=== PATIENT | male | born 1950 | race Caucasian/White ===

== ENCOUNTER 2019-03-21 15:58 | Inpatient (IN) | payer MEDICARE, OTHER ==
[~2019-03-21] VITALS: Ht 180.3 cm; Wt 66.2 kg
--- NOTE | 2019-03-21 16:15 | NUR ---
Patient BIB pvt ambulance from [facility] for med cl to GPS admission. Patient put on a 5150 for GD. Patient reportedly was in a Lyft ride to a [place] residence that he used to live in and has not lived at this residence for about 3 years. Patient A/Ox2 to self and setting. Respiratory even and unlabored, no cough no sob. No acute cardiovascular distress noted, allpulses palpable. Patient ambulating steady. Patient in bed at lowest position, srupx2, fall and safety precautions implemented per protocol.
[2019-03-21] MEDS ORDERED: LISI-603 PO (16:33)
[2019-03-21] MEDS ORDERED: LEVE500T9 PO (16:33)
[2019-03-21] MEDS ORDERED: QUET25TA PO (16:33)
[2019-03-21] MEDS ORDERED: FAMO-132 PO (16:33)
[2019-03-21] MEDS ORDERED: CYAN1TAB17 PO (16:33)
[2019-03-21] MEDS ORDERED: DILT180C90 PO (16:33)
[2019-03-21] MEDS ORDERED: THIA100T13 PO (16:33)
[2019-03-21] MEDS ORDERED: NICO-671 TP (16:33)
[2019-03-21 16:36] LABS: BASOPHILS % (AUTO) 0.6 % (0.0-2.0); EOSINOPHILS # (AUTO) 0.1 K/uL (0.0-0.7); EOSINOPHILS % (AUTO) 1.8 % (0.0-7.0); HEMATOCRIT 35.8 % (36.7-47.1); HEMOGLOBIN 11.9 g/dL (12.5-16.3); LYMPHOCYTES # (AUTO) 1.7 K/uL (20.0-40.0); LYMPHOCYTES % (AUTO) 22.5 % (20.5-51.5); MEAN CORPUSCULAR HEMOGLOBIN 30.9 uug (23.8-33.4); MEAN CORPUSCULAR HGB CONC 33 g/dL (32.5-36.3); MEAN CORPUSCULAR VOLUME 93.1 fL (73.0-96.2); NEUTROPHILS # (AUTO) 4.6 K/uL (1.8-8.9); NEUTROPHILS % (AUTO) 62.1 % (38.5-71.5); PLATELET COUNT (AUTO) 196 K/uL (152-348); RED BLOOD CELL COUNT(AUTO) 3.85 MIL/uL (4.06-5.63); WHITE BLOOD COUNT (AUTO) 7.4 K/uL (3.6-10.2)
[2019-03-21 16:42] LABS: CARBON DIOXIDE 30 mmol/L (21-32); CHLORIDE 105 mmol/L (98-107); CREATININE 0.6 mg/dL (0.6-1.3); GLUCOSE 87 mg/dL (74-106); UREA NITROGEN, BLOOD 15 mg/dL (7-18)
[2019-03-21 16:45] LABS: *BILIRUBIN,URIN NEGATIVE (NEGATIVE); *CLARITY,URINE CLEAR (CLEAR); *COLOR,URINE YELLOW (YELLOW); *KETONES,URINE NEGATIVE (NEGATIVE); *UROBILINOGEN,URINE 0.2 E.U./dl (NORMAL); LEUKOCYTE ESTERASE ,URINE TRACE (NEGATIVE); NITRITE, URINE NEGATIVE (NEGATIVE); PH,URINE 6.5 (5.0-8.0); UGLUCOSE NEGATIVE (NEGATIVE)
[2019-03-21 16:48] LABS: ACETAMINOPHEN < 2.0 ug/mL (10-30); ALANINE AMINOTRANSFERASE 23 U/L (16-63); ALKALINE PHOSPHATASE 101 U/L (50-136); ASPARTATE AMINOTRANSFERASE 13 U/L (15-37); BILIRUBIN,DIRECT 0.1 mg/dL (0.0-0.2); BILIRUBIN,TOTAL 0.5 mg/dL (0.2-1.0); TOTAL PROTEIN, SERUM 7.2 g/dL (6.4-8.2)
[2019-03-21 16:50] LABS: ETHANOL < 3 MG/DL (0-0)
[2019-03-21 16:51] LABS: *BLOOD, URINE TRACE (NEGATIVE)
[2019-03-21 16:55] LABS: *AMPHETAMINE, URINE NEGATIVE (NEGATIVE); *BARBITURATE, URINE NEGATIVE (NEGATIVE); *CANNABINOID, URINE NEGATIVE (NEGATIVE); *COCCAINE, URINE NEGATIVE (NEGATIVE); *OPIATE, URINE NEGATIVE (NEGATIVE); *PHENCYCLIDINE SCREEN,URINE NEGATIVE (NEGATIVE)
--- NOTE | 2019-03-21 17:21 | NUR ---
Report given to VIVIENNE Giraldo
--- NOTE | 2019-03-21 17:24 | NUR ---
Patient transported to MHU in stable condition.
--- NOTE | 2019-03-21 17:30 | NUR ---
GPS: Nursing Notes: Admitting Notes: Patient admitted to MHU on 5150 GD due to confusion, disorientation, not having any penitentiary and any means to take care of himself. on face to face assessment, A/Ox1, forgetful, confused, disoriented, disorganized, gets easily irritable and anxious when questioned by staff, unable to formulate a viable plan for self care, admitting package giving to the patient and oriented to the unit, V/S: 150/65, 83, 18, 100%, 0/10, 98.1, ambulatory, continue to monitor for safety, continue with treatment plan.
[2019-03-21 17:35] VITALS: BP 150/65
[2019-03-21] MEDS ORDERED: BLOOD SUGAR DIAGNOSTIC 1 EACH STRIP VI ONE (17:45)
[2019-03-21] MEDS ORDERED: ACETAMINOPHEN 325 MG TABLET PO PRN (17:45)
[2019-03-21] MEDS ORDERED: MAG HYDROX/AL HYDROX/SIMETH 30 ML LIQUID UDC PO PRN (17:45)
[2019-03-21] MEDS ORDERED: MAGNESIUM HYDROXIDE 30 ML LIQUID UDC PO PRN (17:45)
[2019-03-21] MEDS ORDERED: LORAZEPAM 1 MG TABLET PO PRN (17:45)
[2019-03-21] MEDS ORDERED: ZOLPIDEM 5 MG TABLET PO PRN (17:45)
[2019-03-21 20:17] VITALS: BP 167/67
--- NOTE | 2019-03-22 05:41 | NUR ---
Patient slept 5.30 hours. Went to bed late. In bed asleep at this time. No issues or distress noted. Continuing to reorient to environment as needed.
[2019-03-22] MEDS: NICOTINE 21 MG/24HR PATCH TD SCH ×2 (08:23→08:25)
[2019-03-22 08:58] LABS: ALANINE AMINOTRANSFERASE 23 U/L (16-63); ALKALINE PHOSPHATASE 96 U/L (50-136); ASPARTATE AMINOTRANSFERASE 13 U/L (15-37); BILIRUBIN,TOTAL 0.8 mg/dL (0.2-1.0); CARBON DIOXIDE 31 mmol/L (21-32); CHLORIDE 102 mmol/L (98-107); CREATININE 0.6 mg/dL (0.6-1.3); GLUCOSE 127 mg/dL (74-106); POTASSIUM 4.1 mmol/L (3.5-5.1); TOTAL PROTEIN, SERUM 7.8 g/dL (6.4-8.2); UREA NITROGEN, BLOOD 15 mg/dL (7-18)
--- NOTE | 2019-03-22 10:30 | NUR ---
called and spoke with Dr. Marie regarding Neuroconsult order, Doctor acknowledge will continue follow up
[2019-03-22] MEDS: LISINOPRIL 20 MG TABLET PO SCH ×2 (11:30→20:21)
[2019-03-22] MEDS ORDERED: CYANOCOBALAMIN 100 MCG TABLET PO SCH (11:30)
[2019-03-22] MEDS ORDERED: FOLIC ACID/VITAMIN B COMP W-C TABLET PO SCH (11:30)
[2019-03-22] MEDS ORDERED: THIAMINE HCL 100 MG TABLET PO SCH (11:30)
[2019-03-22] MEDS: FAMOTIDINE 20 MG TABLET PO SCH ×2 (11:34→16:08)
[2019-03-22] MEDS: LEVETIRACETAM 500 MG TABLET PO SCH ×2 (11:34→20:20)
[2019-03-22] MEDS: DILTIAZEM HCL 90 MG TABLET PO SCH ×3 (11:37→23:58)
[2019-03-22] MEDS ORDERED: DILTIAZEM HCL CD 180 MG CAP.SR.24H PO SCH (12:00)
[2019-03-22] MEDS: CEphaleXIN 250 MG CAPSULE PO SCH ×2 (14:37→21:00)
[2019-03-22 15:40] VITALS: BP 113/53
[2019-03-22] MEDS: QUETIAPINE FUMARATE 25 MG TABLET PO SCH (20:20)
[2019-03-22 20:24] VITALS: BP 149/68
[2019-03-23] MEDS: CEphaleXIN 250 MG CAPSULE PO SCH ×3 (05:54→23:37)
[2019-03-23] MEDS: DILTIAZEM HCL 90 MG TABLET PO SCH ×3 (05:54→17:03)
[2019-03-23 07:51] VITALS: BP 144/66
[2019-03-23] MEDS: FAMOTIDINE 20 MG TABLET PO SCH ×2 (08:51→17:03)
[2019-03-23] MEDS: LEVETIRACETAM 500 MG TABLET PO SCH ×2 (08:51→20:22)
[2019-03-23] MEDS: VITAMIN B COMPLEX 1 TABLET PO SCH (08:51)
[2019-03-23] MEDS: LISINOPRIL 20 MG TABLET PO SCH ×2 (08:51→20:22)
[2019-03-23] MEDS: NICOTINE 21 MG/24HR PATCH TD SCH (08:59)
[2019-03-23] MEDS ORDERED: FOLIC ACID/VITAMIN B COMP W-C TABLET PO SCH (09:00)
--- NOTE | 2019-03-23 13:46 | NUR ---
Social Work Note/Initial Discharge Note: Patient currently does not have an existing address. Patient appears to be homeless. antichecking iron worker will work with the patient and the MD regarding appropriate discharge planning. antichecking iron worker will form a safe and proper discharge.
--- NOTE | 2019-03-23 13:47 | NUR ---
Social Work Note/Family Contact: hold worker contacted patients sister Marycruz ([phone]) who states that she lives in [place] and does not have any contact with her brother. hold worker was able to gather some collateral. hold worker also contacted patients other sister Evelyn who live sin [place] ([phone]) and left a voicemail.
--- NOTE | 2019-03-23 13:48 | NUR ---
Social Work Note: rehabilitation caseworker contacted [facility] in [place] to speak to housing case manager Israel ([phone]) who was the ER housing case manager. Then this engineering writer was transfered to Vickey another housing case manager who stated that housing case manager for patient is Stellaeduardo Pete ([phone]) was not available. Per Vickey, he stated that patient was homeless and was unsure why patient was discharged to [place]. Per Vickey, he stated that there hospital works with [facility] and that they are contracted.
--- NOTE | 2019-03-23 14:50 | NUR ---
Social Work Note/Coordination of Care: trail construction worker contacted Nathalie delmer from [facility] ([phone]) and sent patients psychiatric H & P notes and progress notes.
--- NOTE | 2019-03-23 14:56 | NUR ---
Social Work Note/Coordination of Care: tire worker contacted Julio C dowell from [facility] ([phone]) and sent patients psychiatric H & P notes and progress notes.
--- NOTE | 2019-03-23 15:04 | NUR ---
Social Work Note/Coordination of Care: tank worker contacted Vickey dowell from [facility] ([phone]) and sent patients psychiatric H & P notes and progress notes.
[2019-03-23 16:52] VITALS: BP 124/52
[2019-03-23 20:05] VITALS: BP 139/52
[2019-03-23] MEDS: QUETIAPINE FUMARATE 25 MG TABLET PO SCH (20:21)
[2019-03-24] MEDS: DILTIAZEM HCL 90 MG TABLET PO SCH ×4 (06:00→17:03)
[2019-03-24] MEDS: CEphaleXIN 250 MG CAPSULE PO SCH ×3 (06:34→21:22)
[2019-03-24 07:30] VITALS: BP 103/50
[2019-03-24] MEDS: NICOTINE 21 MG/24HR PATCH TD SCH (08:14)
--- NOTE | 2019-03-24 08:28 | NUR ---
Social Work Note/Coordination of Care: die set up worker contacted Nathalie delmer from [facility] ([phone]) and sent patients psychiatric H & P notes and progress notes. Nathalie declined patient due to not enough SNF days.
--- NOTE | 2019-03-24 08:28 | NUR ---
Social Work Note/Coordination of Care: corrections caseworker contacted Vickey from [facility] ([phone]) and sent patients psychiatric H & P notes and progress notes.
[2019-03-24] MEDS: LISINOPRIL 20 MG TABLET PO SCH ×2 (08:36→20:17)
[2019-03-24] MEDS: FAMOTIDINE 20 MG TABLET PO SCH ×2 (08:36→17:02)
[2019-03-24] MEDS: LEVETIRACETAM 500 MG TABLET PO SCH ×2 (08:36→20:17)
[2019-03-24] MEDS: VITAMIN B COMPLEX 1 TABLET PO SCH (08:38)
--- NOTE | 2019-03-24 08:49 | NUR ---
Social Work Note: vegetable farmworker spoke with Gregoria Pete director of casework services from [facility] ([phone]). vegetable farmworker requested director of casework services to share patients address. Per Gregoria, she stated that they do not restrain patients and allow them to go to the destination they prefer. She stated that she provided patient with resources upon discharge such as mental health clinics. This technical publications writer asked if she provided patient with home health services and Gregoria stated that they are unable to provide home health services. This technical publications writer asked if patient had keys upon arrival and Gregoria stated that no patient had no keys. Gregoria will contact this public health social worker to verify patient address in [place].
--- NOTE | 2019-03-24 10:01 | NUR ---
Social Work Note/Coordination of Care: adz worker contacted Bria jamie ([phone]) and shared to fax to [facility] ([phone]) patients H & P psychiatric notes and progress notes. adz worker faxed and will follow up.
--- NOTE | 2019-03-24 14:25 | NUR ---
Social Work Note/Coordination of Care: automotive tire worker contacted Vickey dowell from [facility] ([phone]) and he had declined patient due to no SNF days. automotive tire worker contacted Julio C dowell from [facility] ([phone]) and she had declined due to patient having no SNF days. automotive tire worker contacted Vickey from [facility] ([phone]) and declined due to patient behavioral being problematic and stated that [facility] declined due to no SNF days.
--- NOTE | 2019-03-24 14:27 | NUR ---
Social Work Note/Coordination of Care: print room worker faxed Rita from [facility] ([phone]) and faxed H & P psychiatric notes and progress notes. Per Rita and Lian, pt is accepted. Per Rita, they will provide transportation 03/28/2019 at 11PM.
--- NOTE | 2019-03-24 14:48 | NUR ---
Social Work Note/Substance Abuse Intervention: Patient was provided with a brief substance abuse intervention and referred to [facility] , [facility] , and [facility] .
--- NOTE | 2019-03-24 14:58 | NUR ---
Social Work Note/Family Contact: salvage mend worker contacted patients sister Marycruz ([phone]) and stated that patient will be discharged to [facility] and gave information. salvage mend worker informed that patient will be discharged 03/28/19 at 11AM. Per Marycruz, she was agreeable with this discharge plan.
--- NOTE | 2019-03-24 15:08 | NUR ---
Social Work Note/Individual Therapy Note: viscosity worker met with patient and provided brief counseling. Patient is easily irritable and easily angered. Patient presents with flat affect. viscosity worker discussed positive/negatives about substance abuse. Patient stated that "drinking" is for idiots.
[2019-03-24 16:38] VITALS: BP 138/64
--- NOTE | 2019-03-24 17:36 | NUR ---
Called dr. Lou to follow up with neuro consult. Left a message.
[2019-03-24 20:12] VITALS: BP 157/70
[2019-03-24] MEDS: QUETIAPINE FUMARATE 25 MG TABLET PO SCH (20:17)
[2019-03-25] MEDS: CEphaleXIN 250 MG CAPSULE PO SCH ×3 (06:16→20:26)
[2019-03-25] MEDS: DILTIAZEM HCL 90 MG TABLET PO SCH ×4 (06:16→17:01)
[2019-03-25 07:30] VITALS: BP 134/65
[2019-03-25] MEDS: FAMOTIDINE 20 MG TABLET PO SCH ×2 (08:29→17:00)
[2019-03-25] MEDS: NICOTINE 21 MG/24HR PATCH TD SCH (08:29)
[2019-03-25] MEDS: LEVETIRACETAM 500 MG TABLET PO SCH ×2 (08:29→20:25)
[2019-03-25] MEDS: LISINOPRIL 20 MG TABLET PO SCH ×2 (08:29→20:26)
[2019-03-25] MEDS: VITAMIN B COMPLEX 1 TABLET PO SCH (08:31)
[2019-03-25 16:00] VITALS: BP 120/47
[2019-03-25] MEDS: QUETIAPINE FUMARATE 25 MG TABLET PO SCH (20:25)
[2019-03-25 20:43] VITALS: BP 153/66
--- NOTE | 2019-03-25 22:00 | NUR ---
received to care, sitting in tv room, by self, isolative and suspicious, but pleasant when approached. denies si, or any other symptoms. compliant with medications, but was initially hesitant, stating that he didn't need any medications, denying the need to be in the hospital. as of 2199, he appears to be asleep. no distress noted. will continue to monitor closely.
[2019-03-26] MEDS: DILTIAZEM HCL 90 MG TABLET PO SCH ×4 (05:49→17:05)
[2019-03-26] MEDS: CEphaleXIN 250 MG CAPSULE PO SCH (05:49)
--- NOTE | 2019-03-26 06:00 | NUR ---
slept 8 hours, total. continues to sleep. no distress noted.
[2019-03-26 07:30] VITALS: BP 117/54
[2019-03-26] MEDS: VITAMIN B COMPLEX 1 TABLET PO SCH (08:59)
[2019-03-26] MEDS: LISINOPRIL 20 MG TABLET PO SCH ×2 (08:59→20:21)
[2019-03-26] MEDS: LEVETIRACETAM 500 MG TABLET PO SCH ×2 (08:59→20:20)
[2019-03-26] MEDS: NICOTINE 21 MG/24HR PATCH TD SCH (08:59)
[2019-03-26] MEDS: FAMOTIDINE 20 MG TABLET PO SCH ×2 (09:00→17:05)
[2019-03-26 16:00] VITALS: BP 146/67
[2019-03-26 20:00] VITALS: BP 145/54
[2019-03-26] MEDS: QUETIAPINE FUMARATE 25 MG TABLET PO SCH (20:20)
[2019-03-26] MEDS: ATORVASTATIN 10 MG TABLET PO SCH (20:21)
--- NOTE | 2019-03-26 22:00 | NUR ---
received to care, sitting by self in activity room, watching tv, pleasant upon approach. was initially reluctant to take his medications, believing that he was already given them. he eventually took them, with much encouragement. he did become verbally abusive, but calmed down quickly. as of 2199, he appears to be asleep. no distress noted. will continue to monitor closely.
--- NOTE | 2019-03-27 06:00 | NUR ---
slept 8.25 hours, total. continues to sleep. no distress noted.
[2019-03-27] MEDS: DILTIAZEM HCL 90 MG TABLET PO SCH ×4 (06:06→17:47)
[2019-03-27 07:30] VITALS: BP 146/68
[2019-03-27] MEDS: FAMOTIDINE 20 MG TABLET PO SCH ×2 (09:01→16:43)
[2019-03-27] MEDS: LEVETIRACETAM 500 MG TABLET PO SCH ×2 (09:01→20:01)
[2019-03-27] MEDS: VITAMIN B COMPLEX 1 TABLET PO SCH (09:01)
[2019-03-27] MEDS: ASPIRIN 81 MG TAB.CHEW PO SCH (09:01)
[2019-03-27] MEDS: NICOTINE 21 MG/24HR PATCH TD SCH (09:02)
[2019-03-27] MEDS: LISINOPRIL 20 MG TABLET PO SCH ×2 (09:02→20:01)
[2019-03-27] MEDS: QUETIAPINE FUMARATE 25 MG TABLET PO SCH ×3 (09:08→20:02)
--- NOTE | 2019-03-27 15:22 | NUR ---
Social Work Note/PC Hearing Notification: electrical linesworker contacted patients sister Marycruz, ([phone]) and notified patients probable cause of hearing today.
[2019-03-27 16:28] VITALS: BP 146/65
[2019-03-27] MEDS: ATORVASTATIN 10 MG TABLET PO SCH (20:01)
[2019-03-27 20:10] VITALS: BP 151/60
[2019-03-28] MEDS: DILTIAZEM HCL 90 MG TABLET PO SCH ×2 (05:58)
[2019-03-28 07:57] VITALS: BP 151/69
--- NOTE | 2019-03-28 08:02 | NUR ---
Social Work Note/Discharge: Patient will be discharged to detention facility, [facility] [place] [address]; ([phone]) via Ambulance transportation at 11AM provided by [facility] [place]. Tender Labor spoke with Rita Lead Clinical Research Coordinator at [facility]; ([phone]) who stated patient will be accepted back at facility today. Per patients sister Marycruz, ([phone]) has been made aware and agreeable with discharge plans. Patient is alert and oriented 1-2x and is unable to plan for self-care. Patient denies any suicidal or homicidal ideations. Patient is aware and agreeable with discharge plans. Patient will continue to follow-up with Psychiatrist Dr. Box and Photo Stylist Dr. Ann at [facility] [place], [place] ; ([phone]) and will follow up to discuss smoking cessation and address substance abuse dependency. Patient was provided with a brief substance abuse intervention and referred to [facility] , [facility] , and [facility] . Patient presents with euthymic mood and congruent affect.
--- NOTE | 2019-03-28 08:03 | NUR ---
Social Work Note/Firearms Report: Consumer Affairs Manager completed and submitted a [employer] firearms report for 5250 grave disability certification. A copy of report has been placed in patient chart.
[2019-03-28] MEDS: QUETIAPINE FUMARATE 25 MG TABLET PO SCH (08:19)
[2019-03-28] MEDS: FAMOTIDINE 20 MG TABLET PO SCH (08:19)
[2019-03-28] MEDS: NICOTINE 21 MG/24HR PATCH TD SCH (08:19)
[2019-03-28] MEDS: ASPIRIN 81 MG TAB.CHEW PO SCH (08:19)
[2019-03-28] MEDS: LEVETIRACETAM 500 MG TABLET PO SCH (08:19)
[2019-03-28 08:22] VITALS: BP 151/69
[2019-03-28] MEDS: LISINOPRIL 20 MG TABLET PO SCH (08:22)
[2019-03-28] MEDS: VITAMIN B COMPLEX 1 TABLET PO SCH (08:42)
--- NOTE | 2019-03-28 11:30 | NUR ---
GPS: Nursing Notes: Discharge Notes: Patient is awake and responding to his name, cooperative with nursing care, compliant with his medications, following staff directions, denies any SI/HI, denies any AH/VH, denies any pain or discomfort, denies any SOB, discharge to [facility] at [address] [place] [id number] , report given to Patricia RN mixing supervisor, took all his belongings with him, transported via facility's transportation. Patient will continue to follow-up with Psychiatrist Dr. Box and Casualty Claims Supervisor Dr. Ann at [facility] [address] [place] [id number]; ([phone]) and will follow up to discuss smoking cessation and address substance abuse dependency. Patient was provided with a brief substance abuse intervention and referred to [facility] , [facility] , and [facility] .
== END 2019-03-28 11:30 | DRG 885 ==
LOC: ER 15:58 → GPS 17:17
PROVIDERS: ADMIT Psychiatry & Neurology Psychiatry; ATTEND Nurse Practitioner Acute Care
DX: F29 Unspecified psychosis not due to a substance or known physiological condition (principal); G93.41 Metabolic encephalopathy; N39.0 Urinary tract infection, site not specified; F10.27 Alcohol dependence with alcohol-induced persisting dementia; G40.909 Epilepsy, unspecified, not intractable, without status epilepticus; Z59.0 Homelessness; K21.9 Gastro-esophageal reflux disease without esophagitis; I69.398 Other sequelae of cerebral infarction; I10 Essential (primary) hypertension; G93.89 Other specified disorders of brain; D63.8 Anemia in other chronic diseases classified elsewhere; Z79.899 Other long term (current) drug therapy; Y90.0 Blood alcohol level of less than 20 mg/100 ml
CPT/HCPCS: 36415; 70450; 71045; 80307; 85025; 87086; 93005; A4663; G0480; G0480-TC